=== PATIENT | female | born 1985 | race Caucasian/White ===

== ENCOUNTER 2016-11-24 10:12 | Emergency (ER) | payer MEDICARE, MEDICAID ==
[~2016-11-24] VITALS: Ht 160 cm; Wt 68.2 kg
[2016-11-24 10:25] VITALS: BP 133/90; PULSE 91; RESP 20; O2SAT 99
--- NOTE | 2016-11-24 11:28 | ED.REPORT ---
HPI-Dyspnea / Wheezing Date of Service Nov 24, 2016 ED Provider: Micheal Drummond MD A 31 year old female with a history of asthma and smoking presents to the ED complaining of a productive cough with yellow and green sputum. This has been worsening recently, which the pt believes is related to breathing cold air. The pt is also complaining of back pain and vomiting. The nausea and vomiting occurred several days ago and seem to have resolved at this point. The pt denies incontinence, as well as any history of blood clot. Nursing Notes Stated Complaint: MULTIPLE ILLNESSES Chief Complaint: FLU/Cold Symptoms Nursing Notes Reviewed: Yes Allergies: Coded Allergies: amoxicillin (Unverified Allergy, Unknown, 11/24/16) Scheduled Azithromycin (Zithromax (Z-Eren)) 250 Mg Tablet 250 MG PO DIRECTED Take two tablets by mouth on day 1, then take one tablet daily on days 2 through 5. Scheduled PRN Ibuprofen (Ibuprofen) 800 Mg Tablet 800 MG PO TID PRN PRN For Pain General Time Seen by MD: 10:36 Chief Complaint Cough Hx Obtained From: Patient Arrived By: Walk-in Sudden in Onset?: No Recent Healthcare: Recent doctor visit, Recent hospitalization Similar Sx Previous: No Risk Factors PERC Rule All PERC criteria "No", PERC rule satisfied Past Medical History Past Medical History Reports: Asthma Past Surgical History none reported Smoking History Current Every Day Smoker Social History Alcohol Use: Denies alcohol use Drug Use: THC Other Social History: Local resident, Homeless Ambulatory Status Independent Review of Systems Constitutional: Denies: Fever Respiratory: Reports: Prod cough, green, Prod cough, yellow Musculoskeletal: Reports: Back pain Skin: Denies Rash Complete sys rev & neg: except as marked. GI: Reports: Nausea (resolved), Vomiting (resolved) Female: Denies: Incontinence Physical Exam Initial Vital Signs Vital Signs (First) Date Time Temp Pulse Resp B/P Pulse Ox O2 Delivery O2 Flow Rate FiO2 11/24/16 10:25 36.4 91 20 133/90 99 Room Air Initial VS: Reviewed General/Constitutional: Awake, Alert Neck: Atraumatic, Supple, Full range of motion Respiratory / Chest: Atraumatic, Breath sounds NL, Breath sounds = bilat, No respiratory distress Cardiovascular: Heart rate NL, Regular rhythm, Heart sounds NL ENT: Atraumatic, Airway patent, Mucous membranes moist Abdomen: Atraumatic, Soft, Non-tender Back: Atraumatic, Full range of motion Lower Extremity / Pelvis / MS: Atraumatic, Full range of motion Skin: Atraumatic, Color NL, No rash, Warm, Dry Neurologic: Oriented X3, Speech NL, No motor deficits, No sensory deficits Head / Eyes: Atraumatic, Normocephalic, PERRL, EOMI Upper Extremity / MS: Atraumatic, Full range of motion Psychiatric: Affect NL, Mood NL Interpretation & Diagnostics X-Ray Chest Interpretation Chest Xray Interpretation: IMPRESSION: No acute disease Dictated by: Yanick Kaiser M.D. on 11/24/2016 at 12:05 Approved by: Yanick Kaiser M.D. on 11/24/2016 at 12:06 Interpretation / Wet Read by: Interpret - Radiologist Re-Eval/Medical Decision Med Decision/Clinical Course 31-year-old female history of smoking and asthma presenting complaining of cough productive green sputum. No respiratory distress. Vital signs stable. Chest x-ray clear. Patient treated for bronchitis with azithromycin. Inhaler as needed. Return precautions given. Source of Hx: Old records Re-Evaluation/Progress : Time of Eval: 11:34 Patient Status: Condition improved Re-Evaluation/Progress Note: Pt rechecked, who is comfortable. She is informed of her radiology results and diagnosis. The plan for discharge is discussed. The pt understands and agrees with the plan. All questions are addressed at this time. Counseled Regarding: Diagnosis, Lab results, Need for follow-up, When/why to return to ED Discharge & Departure Impression: Primary Impression: Bronchitis Disposition: Home Discharge Condition All VS Reviewed: Yes Condition: Stable Patient Instructions: Acute Bronchitis (ED) Additional Instructions: You have bronchitis. Take Azithromycin as directed. Follow up with your primary care physician for further evaluation. Return to the ED if you develop any new or worsening symptoms. Referrals: OTHER,PHYSICIAN (PCP) (Family) Scribe Attestation Portions of this note were transcribed by Carlos Mclain I, Dr. Drummond personally performed the history, physical exam and medical decision-making; I reviewed and confirmed the accuracy of the information in the transcribed note. Signed by: Tamiko Lainez, 11/24/16 and 14:22. Micheal Drummond MD Nov 24, 2016 11:28 CARLOS MCLAIN Nov 24, 2016 11:54
[2016-11-24] MEDS ORDERED: Ketorolac 30 mg/mL 2 mL Inj IM ONE (11:35)
[2016-11-24] MEDS ORDERED: IBUP800T28 PO (11:36)
[2016-11-24] MEDS ORDERED: AZIT250T4 PO (11:36)
--- NOTE | 2016-11-24 12:06 | DRSVH ---
PROCEDURE: X-RAY CHEST ONE VIEW, PORTABLE ([id number]) INDICATIONS: cough TECHNIQUE: One view of the chest was acquired. COMPARISON: None. FINDINGS: Surgical changes and devices: None. Lungs and pleura: No pleural effusions or pneumothorax. Lungs are clear. Mediastinum: Mediastinal contours appear normal. Heart size is normal. Bones and chest wall: No suspicious bony lesions. Overlying soft tissues appear unremarkable. IMPRESSION: No acute disease Dictated by: Yanick Kaiser M.D. on 11/24/2016 at 12:05 Approved by: Yanick Kaiser M.D. on 11/24/2016 at 12:06
[2016-11-24 12:36] VITALS: BP 107/74; PULSE 61; O2SAT 98
== END 2016-11-24 12:19 | disposition home or self-care (01) ==
LOC: SED 10:12
DX: J40 Bronchitis, not specified as acute or chronic (principal); J45.909 Unspecified asthma, uncomplicated; F17.200 Nicotine dependence, unspecified, uncomplicated; Z59.0 Homelessness; Z88.0 Allergy status to penicillin
CPT/HCPCS: 71010; 87804; 96372; 99284; J1885